=== PATIENT | male | born 1995 | race Asian ===

== ENCOUNTER 2016-11-18 11:15 | Emergency (ER) | payer OTHER ==
[~2016-11-18] VITALS: Ht 182.9 cm; Wt 79.9 kg
[2016-11-18 11:18] VITALS: TEMP 37; Ht 182.9 cm; Wt 79.9 kg
[2016-11-18 14:24] VITALS: BP 118/69; PULSE 85; O2SAT 96
--- NOTE | 2016-11-18 20:24 | EMERGENCY ROOM VISIT NOTE ---
History Report prepared by Gali: Nadira Ariza Under the Supervision of: Dr. Michael Lopez M.D. First contact with patient: 12:40 Chief Complaint: RASH Stated Complaint: RASH History of Present Illness The patient is a 21 year old male who presents to the Emergency Room with complaints of a worsening rash for the past week and a half. He reports the rash started on his abdomen and has spread to both of his arms. Last night, it worsened, so he decided to come to the ED this morning. The patient describes the rash as feeling itchy in nature and has tried using "[place] medicine", but has not taken anything else for it. He states his family told him he had Chicken Pox when he was 5 years old, but he does not think he received the Chicken Pox vaccine. He does admit to some recent diaphoresis but denies any fevers or cold symptoms. He denies any recent contact with anyone who has been sick or had a similar rash. He denies any recent travel. The patient also denies LOC, headache, chills, visual changes, neck pain, chest pain, breathing difficulties, nausea, vomiting, abdominal pain, back pain, melena, hematochezia , urinary symptoms, numbness, weakness, lymphadenopathy, or other complaints. The patient denies any history of previous surgeries or chronic medical problems. 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 A total of ten systems were reviewed and were otherwise negative. Past Medical & Surgical Medical Problems: (1) No known problems Family History Cancer Social History Smoking Status: Never Smoker Alcohol Use: none Drug Use: none Marital Status: in relationship Housing Status: lives with significant other Occupation Status: [employer] student Current/Historical Medications No Active Prescriptions or Reported Meds Allergies Coded Allergies: No Known Allergies (Unverified , 11/18/16) Physical Exam Vital Signs Date Time Temp Pulse Resp B/P Pulse Ox O2 Delivery O2 Flow Rate FiO2 11/18/16 14:24 85 16 118/69 96 11/18/16 11:18 37.0 78 20 121/75 98 Room Air Physical Exam GENERAL: Awake, alert, well-appearing, in no distress HENT: Normocephalic, atraumatic. Oropharynx unremarkable. EYES: Normal conjunctiva. Sclera non-icteric. NECK: Supple. No nuchal rigidity. FROM. No JVD. RESPIRATORY: Clear to auscultation. CARDIAC: Regular rate, normal rhythm. Extremities warm and well perfused. Pulses equal. ABDOMEN: Soft, non-distended. No tenderness to palpation. No rebound or guarding. No masses. RECTAL: Deferred. MUSCULOSKELETAL: Chest examination reveals no tenderness. The back is symmetrical on inspection without obvious abnormality. There is no CVA tenderness to palpation. No joint edema. LOWER EXTREMITIES: Calves are equal size bilaterally and non-tender. No edema. No discoloration. NEURO: Normal sensorium. No sensory or motor deficits noted. SKIN: Diffuse popular rash in multiple stages scattered throughout body, several that are small vesicles, numerous ones are crusted over, areas that were previously broken out now have hyperpigmentation. Medical Decision & Procedures Laboratory Results Test 11/18/16 14:06 Laboratory results reviewed by sc ED Course 1317: The patient was evaluated in room A10. A complete history and physical exam was performed. 1420: I reevaluated the patient. He is feeling much better. I discussed his results and discharge instructions and he verbalized complete understanding and agreement. Medical Decision Triage Nursing notes reviewed and agree them. The patient's history was concerning for a rash. Differential diagnosis: Etiologies such as varicella, Sebastian-Yared syndrome, toxic epidermal necrolysis, erythema multiforme, cellulitis, scabies, HSV, zoster, eczema, staph scalded skin syndrome, viral exanthem, fungal infection, urticaria, allergic reaction, contact dermatitis, as well as others were entertained. Physical examination: As above. The distribution, progression, and appearance of the rash seemed to be consistent with a mild varicella ER treatment provided: No medication given as the patient had minimal symptoms. He declined Benadryl. Diagnostic interpretation by me: VZV titers pending. The patient's rash and brachial since to be most consistent with varicella. He thinks he had chickenpox as a child. He does not have any signs of significant compromise for this. He is immunocompetent. He has no involvement of his palms , mucous membranes, or eyes. He has not been in contact with any immunocompromised patients. For diagnostic purposes titers were sent. The patient will call back to the Emergency Room for results. Contact precautions were given. Patient was given a school note. If he worsens in any way he will be back to the Emergency Room. By the evaluation outlined above emergent etiologies such as Sebastian-Yared syndrome, toxic epidermal necrolysis, erythema multiforme, cellulitis, scabies, HSV, shingles, staph scalded skin syndrome, urticaria, allergic reaction, as well as others were deemed relatively unlikely. The patient was informed about the findings as listed above. All questions were answered and he was pleased with the treatment. Return instructions were outlined and the patient was discharged in stable condition. Outpatient prescription management: None Referral: The patient was referred back to his primary care physician for follow-up in 2- 3 days for a recheck of the current condition. The chart was completed utilizing [employer] Speech voice recognition software. Grammatical errors, random word insertions, pronoun errors, and incomplete sentences are an occasional consequence of this system due to software limitations, ambient noise, and hardware issues. Any formal questions or concerns about the content, text, or information contained within the body of this dictation should be directly addressed to the physician for clarification. Impression Primary Impression: Rash Scribe Attestation The scribe's documentation has been prepared under my direction and personally reviewed by me in its entirety. I confirm that the note above accurately reflects all work, treatment, procedures, and medical decision making performed by me. Departure Information Dispostion Home / Self-Care Prescriptions No Active Prescriptions or Reported Meds Referrals No Doctor, Assigned (PCP) Patient Instructions [facility] Additional Instructions Follow-up with the Emergency Room on Saturday for blood results. Call back to [phone]. Diphenhydramine: Use 25 to 50 mg every six hours for swelling, itching, or hives. This medication may cause sedation. Do not drive or perform dangerous activity if you are using this medication. Minimize contact with anyone that has a compromised immune system, undergoing chemotherapy, may be , or as no prior contact with chickenpox. Return to the ER immediately for spreading redness, fevers, pus-like drainage, severe pain, headache, chest pain, breathing difficulty, involvement of the mouth or eyes, or as needed. Follow-up with [facility] this week.
[2016-11-21 13:30] LABS: VARICELLA ZOS VIR IGG VALUE 1.97 INDEX; VARICELLA ZOS VIR IGM AB <=0.90 (<=0.90)
== END 2016-11-18 14:27 | disposition home or self-care (01) ==
LOC: C.EDB 11:16 → C.EDA 14:27
DX: R21 Rash and other nonspecific skin eruption (principal)